=== PATIENT | female | born 1995 | race Hispanic/Latino ===

== ENCOUNTER 2019-11-09 12:30 | Emergency (ER) | payer OTHER ==
--- NOTE | 2019-11-09 13:59 | ER ---
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 Pt c/o pain to left shoulder/left side of neck. Denies LOC, denies head injury. Coronavirus screen: The patient has NOT traveled to a country currently being monitored by the CDC within the last 14 days. Ebola Screen: Patient negative for fever greater than or equal to 101.5 degrees Fahrenheit, and additional compatible Ebola Virus Disease symptoms. Initial Sepsis Screen: Does the patient meet any 2 criteria? No. Patient's initial sepsis screen is negative. Does the patient have a suspected source of infection? No. Patient's initial sepsis screen is negative. Risk Assessment: Do you want to hurt yourself or someone else? Patient reports no desire to harm self or others. 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 - Social history:: Smoking status: Patient denies any tobacco usage or history of. Screenin:50 Abuse screen: Denies threats or abuse. Nutritional screening: No deficits noted. aa5 Tuberculosis screening: No symptoms or risk factors identified. Fall Risk None identified. Assessment: 12:50 General: Appears comfortable, Behavior is calm, cooperative. Pain: Complains of pain in aa5 left side of neck Pain does not radiate. Pain currently is 8 out of 10 on a pain scale. Quality of pain is described as sharp, Is continuous, Aggravated by increased activity. Neuro: Level of Consciousness is awake, alert, obeys commands, Oriented to person, place, time, situation. Cardiovascular: Patient's skin is warm and dry. Respiratory: Airway is patent Respiratory effort is even, unlabored, Respiratory pattern is regular, symmetrical. GI: No signs and/or symptoms were reported involving the gastrointestinal system. : No signs and/or symptoms were reported regarding the genitourinary system. EENT: No signs and/or symptoms were reported regarding the EENT system. Derm: Skin is pink, warm \\T\\ dry. Musculoskeletal: Range of motion: intact in all extremities. 14:07 Reassessment: Patient is alert, oriented x 3, equal unlabored respirations, skin aa5 warm/dry/pink. Vital Signs: 12:47 BP 127 / 77; Pulse 95; Resp 18 S; Temp 98.0(TE); Pulse Ox 100% on R/A; Weight 54.43 kg aa5 (R); Height 5 ft. 1 in. (154.94 cm) (R); Pain 8/10; 12:47 Body Mass Index 22.67 (54.43 kg, 154.94 cm) aa5 ED Course: 12:32 Patient arrived in ED. ag5 12:45 Arm band placed on. aa5 12:45 Patient has correct armband on for positive identification. aa5 12:46 Triage completed. aa5 12:49 Phyllis Hutchison, RN is Primary Nurse. aa5 13:13 Dimitris Alfaro PA is PHCP. cami 13:13 Saul Mcgill MD is Attending Physician. [facility] 14:09 No provider procedures requiring assistance completed. Patient did not have IV access aa5 during this emergency room visit. Administered Medications: No medications were administered Outcome: 13:58 Discharge ordered by . [facility] 14:07 Discharged to home ambulatory, with family. aa5 14:07 Condition: stable 14:07 Discharge instructions given to patient, Instructed on discharge instructions, follow up and referral plans. medication usage, Demonstrated understanding of instructions, follow-up care, medications, Prescriptions given X 1. 14:09 Patient left the ED. 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 Pt c/o pain to left shoulder. Denies LOC, denies head injury. aa5
--- NOTE | 2019-11-09 13:59 | EDPHYS ---
Physician Documentation [facility] Name: Lyubov Ricks Age: 24 yrs Sex: Female : 1995 Arrival Date: 11/09/2019 Time: 12:32 Bed 10 Private MD: ED Physician Saul Mcgill HPI: 11/08 13:16 This 24 yrs old Female presents to ER via Ambulatory with complaints of jmm Shoulder Pain. 13:16 The patient or guardian complains of an injury, pain. Onset: The symptoms/episode jmm began/occurred acutely. Modifying factors: the symptoms are alleviated by remaining still, The symptoms are aggravated by movement. Associated signs and symptoms: Pertinent negatives: chest pain, shortness of breath. This is a 24 year old female with no chronic medical conditions that presents to the ED with complaints of left upper back pain which began after falling yesterday. Patient has difficulty lifting her left arm up. . 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 - Social history:: Smoking status: Patient denies any tobacco usage or history of. ROS: 13:16 Constitutional: Negative for fever, chills, and weight loss, Cardiovascular: Negative jmm for chest pain, palpitations, and edema, Respiratory: Negative for shortness of breath, cough, wheezing, and pleuritic chest pain. 13:16 Back: Positive for pain with movement. 13:16 All other systems are negative. Exam: 13:16 Constitutional: This is a well developed, well nourished patient who is awake, alert, jmm and in no acute distress. Head/Face: atraumatic. Eyes: EOMI, no conjunctival erythema appreciated ENT: Moist Mucus Membranes Neck: Trachea midline, Supple Chest/axilla: Normal chest wall appearance and motion. Cardiovascular: Regular rate and rhythm. No edema appreciated Respiratory: Normal respirations, no respiratory distress appreciated Abdomen/GI: Non distended, soft 13:16 Neck: C-spine: appears grossly normal, ROM/movement: is normal. 13:16 Back: left trapezius is ttp, no midline tenderness. 13:16 Musculoskeletal/extremity: FROM appreciated to the left shoulder, non tender to palpation, full radial pulse, full neurology technologist strength. . 13:16 Skin: Appearance: Color: normal in color. 13:16 Neuro: Orientation: is normal, Mentation: is normal, Memory: is normal. 13:16 Psych: Behavior/mood is pleasant, cooperative. Vital Signs: 12:47 BP 127 / 77; Pulse 95; Resp 18 S; Temp 98.0(TE); Pulse Ox 100% on R/A; Weight 54.43 kg aa5 (R); Height 5 ft. 1 in. (154.94 cm) (R); Pain 8/10; 12:47 Body Mass Index 22.67 (54.43 kg, 154.94 cm) aa5 MDM: 13:16 Patient medically screened. [facility] 13:57 Data reviewed: vital signs, nurses notes. Counseling: I had a detailed discussion with cami the patient and/or guardian regarding: the historical points, exam findings, and any diagnostic results supporting the discharge/admit diagnosis, the need for outpatient follow up, to return to the emergency department if symptoms worsen or persist or if there are any questions or concerns that arise at home. 03 13:35 Order name: Shoulder Left (2 View) XRAY cami Administered Medications: No medications were administered Disposition: 16:33 Co-signature as Attending Physician, Saul Mcgill MD I agree with the assessment and [facility] plan of care. Disposition: 11/09/19 13:58 Discharged to Home. Impression: Strain of muscle and tendon of back wall of thorax. - Condition is Stable. - Discharge Instructions: Thoracic Strain. - Prescriptions for orphenadrine citrate 100 mg Oral Tablet Sustained Release - take 1 tablet by ORAL route 2 times per day As needed; 20 tablet. - Work release form, Medication Reconciliation Form, Thank You Letter, Antibiotic Education, Prescription Opioid Use form. - Follow up: Private Physician; When: 2 - 3 days; Reason: Recheck today's complaints, Continuance of care, Re-evaluation by your physician. Signatures: Dispatcher [employer] Saul Plascencia MD MD cha Mickail, Joel, PA PA Phyllis Apodaca, RN RN aa5 Corrections: (The following items were deleted from the chart) 14:09 13:58 11/09/2019 13:58 Discharged to Home. Impression: Strain of muscle and tendon of aa5 back wall of thorax. Condition is Stable. Forms are Medication Reconciliation Form, Thank You Letter, Antibiotic Education, Prescription Opioid Use. Follow up: Private Physician; When: 2 - 3 days; Reason: Recheck today's complaints, Continuance of care, Re-evaluation by your physician. cami
[2019-11-09 14:29] VITALS: BP 127/77; TEMP 98; O2SAT 100
== END 2019-11-09 14:09 | disposition home or self-care (01) ==
LOC: ER 12:30
DX: S29.012A Strain of muscle and tendon of back wall of thorax, initial encounter (principal); W01.0XXA Fall on same level from slipping, tripping and stumbling without subsequent striking against object, initial encounter; Y93.89 Activity, other specified; Y92.211 Elementary school as the place of occurrence of the external cause; Y99.9 Unspecified external cause status
CPT/HCPCS: 99282